=== PATIENT | male | born 1955 | race Caucasian/White ===

== ENCOUNTER → 2020-12-30 | Outpatient (CLI) | payer BC, OTHER ==
[~2020-12-30] MED LIST: ALEVE PM CAPLE1 EACH PO
[2020-12-30 09:01] LABS: HEMOGLOBIN 15.3 gm/dl (14.0-17.5); RED BLOOD COUNT 4.91 M/UL (4.20-5.50); WHITE BLOOD COUNT 6.1 K/UL (4.5-11.0)
== END ==
LOC: LAB 08:36
PROVIDERS: Family Medicine
DX: E78.2 Mixed hyperlipidemia (principal)
CPT/HCPCS: 80053; 80061; 85027

== ENCOUNTER → 2021-06-26 | Outpatient (CLI) | payer BC ==
[2021-06-26 10:52] LABS: BUN/CREATININE RATIO 14 (0-10)
== END ==
LOC: LAB 08:44
PROVIDERS: Family Medicine
DX: I10 Essential (primary) hypertension (principal); E78.2 Mixed hyperlipidemia
CPT/HCPCS: 36415; 80053; 80061

== ENCOUNTER → 2021-08-07 | Outpatient (CLI) | payer BC, OTHER | LOC: EXRD 08:50 | DX: M70.21 Olecranon bursitis, right elbow (principal); R60.0 Localized edema | CPT/HCPCS: 73080 ==

== ENCOUNTER → 2021-11-19 | Outpatient (CLI) | payer BC | LOC: EXRD 13:11 | DX: R07.2 Precordial pain (principal) | CPT/HCPCS: 71046 ==